=== PATIENT | female | born 1955 | race Caucasian/White ===

== ENCOUNTER 2018-07-18 18:04 | Emergency (ER) | payer OTHER ==
[~2018-07-18] VITALS: Ht 154.9 cm; Wt 48.5 kg
[~2018-07-18 18:04] MED LIST: ACTONEL150 MG PO; ALLEGRA-D 24 H1 EACH PO; ASPIRIN81 M2 PO; BACTRIM DS TAB1 EACH PO; BIOIDENTICAL HORM; CILOXAN5 ML OP; CLARITIN10 M2 PO; FAMOTIDINE PO; FISHOIL; MULTIVITAMINS; NORCO 5-325 TA1 EACH PO; PREDNISONE 20 M20 MG PO; PRILOSEC 20 MG20 MG PO; VOLTAREN GEL 1100 G1 TOP; [UNRECOGNIZED DRUG - REMARK]
[2018-07-18] MEDS ORDERED: RISEDRONATE SOD35 M1 PO (18:15)
[2018-07-18] MEDS ORDERED: BIOTIN1 M1 PO (18:15)
[2018-07-18] MEDS ORDERED: ULTRAM 50MG TAB50 MG PO (20:06)
[2018-07-18] MEDS ORDERED: TYLENOL325 MG PO (20:06)
[2018-07-18 21:36] VITALS: BP 138/76
== END 2018-07-18 21:38 | disposition home or self-care (01) ==
LOC: ER 18:04
DX: S06.5X0A Traumatic subdural hemorrhage without loss of consciousness, initial encounter (principal); Z88.8 Allergy status to other drugs, medicaments and biological substances; Z91.018 Allergy to other foods; Z85.828 Personal history of other malignant neoplasm of skin; Z98.890 Other specified postprocedural states; W18.39XA Other fall on same level, initial encounter; Y92.89 Other specified places as the place of occurrence of the external cause; Y93.89 Activity, other specified; Y99.8 Other external cause status

== ENCOUNTER 2018-08-16 10:33 | Inpatient (IN) | payer OTHER ==
[~2018-08-16] VITALS: Ht 154.9 cm; Wt 49.1 kg
[~2018-08-16 10:33] MED LIST changes: +BIOTIN1 M1 PO; +RISEDRONATE SOD35 M1 PO; +TYLENOL325 MG PO; +ULTRAM 50MG TAB50 MG PO
[2018-08-16 10:34] VITALS: BP 153/87
[2018-08-16 11:22] LABS: ABSOLUTE NEUTROPHILS 9.6 thou/uL (1.4-8.2); BASOPHILS 0.1 % (0.0-2.0); EOSINOPHILS 0.1 % (0.0-3.0); HEMATOCRIT 42.7 % (37.0-47.0); HEMOGLOBIN 14.7 gm/dL (12.0-15.0); LYMPHOCYTES 1.4 % (24.0-44.0); MCH 30.7 pg (26.0-34.0); MCHC 34.3 g/dL (28.0-37.0); MCV 89.4 fL (80.0-100.0); MONOCYTES 2.8 % (1.0-8.0); PLATELET COUNT 286 thou/uL (150-400); POLYS 95.6 % (36.0-66.0); RBC 4.78 mil/uL (4.20-5.00); RDW 12.5 % (10.5-14.5)
[2018-08-16 11:31] LABS: CALCIUM 9.1 mg/dL (8.5-10.1); POTASSIUM 4.2 mmol/L (3.5-5.1)
[2018-08-16 11:37] LABS: ALBUMIN 3.7 g/dL (3.4-5.0); TOTAL BILIRUBIN 0.7 mg/dL (<0.1-1.0); TOTAL PROTEIN 7.9 g/dL (6.4-8.2)
[2018-08-16 13:42] LABS: URINE BILIRUBIN NEGATIVE (Negative); URINE BLOOD NEGATIVE (Negative); URINE CLARITY CLEAR; URINE COLOR YELLOW; URINE GLUCOSE-RANDOM* NEGATIVE (Negative); URINE KETONES NEGATIVE (Negative); URINE LEUKOCYTES-REFLEX NEGATIVE (Negative); URINE NITRITE-REFLEX NEGATIVE (Negative); URINE PROTEIN (DIPSTICK) NEGATIVE (Negative); URINE SPECIFIC GRAVITY 1.015 (1.005-1.035); URINE UROBILINOGEN 0.2 E.U./dl (0.2-1.0)
[2018-08-16 14:48] VITALS: BP 124/69
[2018-08-16 15:09] VITALS: BP 146/68
[2018-08-16 16:00] VITALS: BP 149/69
--- NOTE | 2018-08-16 19:46 | NUR ---
PT TO FLOOR AT APPROX 1530. NO S/SX OF CARDIAC OR RESP DISTRESS. NO COMPLAINTS VOICED. WILL CONTINUE TO MONITOR PER ORDERS.
[2018-08-16 20:00] VITALS: BP 135/82
[2018-08-17 04:44] LABS: HEMATOCRIT 35.1 % (37.0-47.0); MCH 30.2 pg (26.0-34.0); MCHC 33.3 g/dL (28.0-37.0); MCV 90.6 fL (80.0-100.0); RBC 3.87 mil/uL (4.20-5.00); RDW 12.9 % (10.5-14.5); WBC 3.9 thou/uL (4.0-11.0)
[2018-08-17 04:52] LABS: HEMOGLOBIN 11.7 gm/dL (12.0-15.0)
[2018-08-17 04:54] VITALS: BP 108/63
--- NOTE | 2018-08-17 04:56 | NUR ---
ASSUMED PT CARE AT 1900. VSS. PT A&0X4. ASSESSMENTS AND MEDS ARE DOCUMENTED. PT RESTED WELL ALL NIGHT, NO FURTHER COMPLAINTS OF NAUSEA OR DIARRHEA. PT IS STABLE. WILL CONTINUE TO MONITOR
[2018-08-17 07:06] VITALS: BP 140/76
[2018-08-17 08:00] VITALS: BP 119/65
[2018-08-17 08:11] VITALS: BP 119/65
--- NOTE | 2018-08-17 11:49 | NUR ---
ASSUMED CARE OF PT AT 0700 THIS SHIFT. PT HAS BEEN COOPERATIVE, HAS DENIED ANY PAIN THIS SHIFT. PT IS FEELING MUCH BETTER TODAY, AND IS READY TO GO HOME PER PT. NO NAUSEA/VOMITING, THIS SHIFT, PT IS WANTING TO EAT LUNCH. ASSESSMENTS ARE DOCUMENTED. PT HAS HAD VISITOR IN ROOM THIS SHIFT, EDUCATION WAS PROVIDED. PLAN OF CARE IS TO DISCHARGE PT THIS SHIFT.
[2018-08-17 11:53] VITALS: BP 119/65
[2018-08-17 18:20] VITALS: BP 119/65
== END 2018-08-17 14:16 | disposition home or self-care (01) | DRG 917 ==
LOC: ER 10:33 → EROBS 14:25 → 2N 14:25 → ENTRNSPT 08-17 14:06 → EDTRNSPTSTS 08-17 14:11 → 2N 08-17 14:16
PROVIDERS: Emergency Medicine; ADMIT Hospitalist
DX: T62.91XA Toxic effect of unspecified noxious substance eaten as food, accidental (unintentional), initial encounter (principal); E43 Unspecified severe protein-calorie malnutrition; K52.9 Noninfective gastroenteritis and colitis, unspecified; E86.0 Dehydration; Z85.828 Personal history of other malignant neoplasm of skin; Z98.1 Arthrodesis status; Z79.899 Other long term (current) drug therapy; Z88.8 Allergy status to other drugs, medicaments and biological substances; Z91.09 Other allergy status, other than to drugs and biological substances; Y92.89 Other specified places as the place of occurrence of the external cause; Z23 Encounter for immunization
CPT/HCPCS: 10194

== ENCOUNTER 2019-02-02 15:58 | Emergency (ER) | payer OTHER ==
[~2019-02-02] VITALS: Ht 154.9 cm; Wt 49.9 kg
[2019-02-02 16:03] VITALS: BP 170/67
[2019-02-02 16:33] LABS: URINE BILIRUBIN NEGATIVE (Negative); URINE BLOOD 2+ (Negative); URINE CLARITY CLEAR; URINE COLOR YELLOW; URINE GLUCOSE-RANDOM* NEGATIVE (Negative); URINE KETONES NEGATIVE (Negative); URINE LEUKOCYTES-REFLEX NEGATIVE (Negative); URINE NITRITE-REFLEX NEGATIVE (Negative); URINE PROTEIN (DIPSTICK) NEGATIVE (Negative); URINE SPECIFIC GRAVITY 1.025 (1.005-1.035); URINE UROBILINOGEN 0.2 E.U./dl (0.2-1.0)
[2019-02-02 16:42] LABS: CASTS None Seen /LPF (None Seen); SQUAMOUS 4-10 Moderate /LPF (0-3)
[2019-02-02 16:43] LABS: BACTERIA-REFLEX 1-9 Few /HPF (None Seen); CRYSTALS None Seen /LPF (None Seen); URINE WBC-REFLEX 0-5 Rare /HPF (0-5)
[2019-02-02] MEDS ORDERED: KEFLEX500 M1 PO (16:57)
== END 2019-02-02 17:25 | disposition home or self-care (01) ==
LOC: ER 15:58
PROVIDERS: Nurse Practitioner Family
DX: R30.0 Dysuria (principal); Z88.8 Allergy status to other drugs, medicaments and biological substances; Z91.018 Allergy to other foods; Z85.828 Personal history of other malignant neoplasm of skin